=== PATIENT | male | born 1985 | race Caucasian/White ===

== ENCOUNTER 2022-06-15 17:20 | Emergency (ER) | payer OTHER, SELFPAY ==
[2022-06-15 17:39] VITALS: BP 115/70; PULSE 58; RESP 16; TEMP 36.8; O2SAT 100
--- NOTE | 2022-06-15 17:51 | ED_ITS ---
HPI - Abdominal Pain General Chief Complaint: Abdominal Pain Stated Complaint: POSSIBLE HEMORRHOID History of Present Illness HPI narrative: 37 yo M presents to urgent care with complaints of irritation to his anus since this past weekend. PT states he does a lot of heavy lifting and did some Sunday which he believes where he overdid it. Pt denies any specific pain in the area. Denies any bloody stools, abdominal pain, fever, or chills. Pt denies constipation. Pt has attempted chux pads and OTC medicine to the anus without relief. Review of Systems Review of Systems: Pertinent positives and pertinent negatives per HPI. PMFSH Comments At the time of my signature, I reviewed and agree with the nursing past medical, surgical, social, and family history. There is no relevant family history pertinent to the patient complaint. Exam Narrative: GENERAL: This is a well-nourished, well-developed patient, in no apparent distress. HEAD: normocephalic, atraumatic. EYES: Sclera clear/white. Vision is grossly intact. EARS: External ears normal, auditory canals clear and without drainage. Hearing grossly intact. NECK: Neck supple, non-tender without lymphadenopathy, masses or thyromegaly. CARDIOVASCULAR: Regular rate and rhythm without murmurs, gallops, or rubs. RESPIRATORY: No respiratory distress SKIN: warm, intact with no suspicious lesions or rash, good texture and turgor. NEURO: awake, alert, and oriented to person, place and time. There were no obvious focal neurologic abnormalities. ANUS: 1.5 cm external hemorrhoid noted outside anus. Non-strangulated. Flesh colored. Course Course Level of Care: Express Care Visit Vital Signs Vital signs: Vital Signs Temperature 98.2 F 06/15/22 17:39 Pulse Rate 58 L 06/15/22 17:39 Respiratory Rate 16 06/15/22 17:39 Blood Pressure 115/70 06/15/22 17:39 Pulse Oximetry 100 06/15/22 17:39 Oxygen Delivery Room Air 06/15/22 17:39 Temperature 98.2 F 06/15/22 17:39 Pulse Rate 58 L 06/15/22 17:39 Respiratory Rate 16 06/15/22 17:39 Blood Pressure 115/70 06/15/22 17:39 Pulse Oximetry 100 06/15/22 17:39 Oxygen Delivery Room Air 06/15/22 17:39 reviewed MDM - Abdominal Pain MDM Narrative Medical decision making narrative: Avoid sitting on your buttocks as much as possible. Avoid heavy lifting if possible. Follow up with a back end engineer if symptoms persist. Differential Diagnosis Differential diagnosis: Likely other (hemorroid, stragulated hemorroid, prolapsed rectum) Critical Care Time Critical Care Time Critical Care Time: No Discharge Plan Discharge Clinical Impression: Acute hemorrhoid Patient Disposition: Home, Self-Care Condition: Stable Instructions: Hemorrhoids (DC) Additional Instructions: Avoid sitting on your buttocks as much as possible. Avoid heavy lifting if possible. Follow up with a back end engineer if symptoms persist. Prescriptions: New hydrocortisone [Proctozone-HC] 2.5 % cream with perineal applicator 1 applic RECTAL DAILY PRN (Reason: hemorrhoids) Qty: 30 0RF Follow-up/Referrals: PHYSICIAN,ELEVATOR EXAMINER AND ADJUSTER [Primary Care Provider] - Stand Alone Forms: Work/School Release IP
== END 2022-06-15 17:58 | disposition home or self-care (01) ==
PROVIDERS: Emergency Provider Nurse Practitioner Family
DX: K64.4 Residual hemorrhoidal skin tags (principal)
CPT/HCPCS: 99213; G0463

== ENCOUNTER 2022-12-17 13:57 | Emergency (ER) | payer OTHER, SELFPAY ==
[2022-12-17 14:10] VITALS: BP 107/54; PULSE 51; RESP 18; TEMP 36.4; O2SAT 99
--- NOTE | 2022-12-17 14:53 | ED.DENTAL ---
HPI - Dental/Oral General Chief complaint: Dental/Oral Stated complaint: dental pain Time Seen by Provider: 12/17/22 14:47 Source: patient and RN notes reviewed Mode of arrival: ambulatory Limitations: no limitations History of Present Illness HPI Narrative: Patient presents today complaining of right upper dental pain. States his cap fell off approximately 1 week ago. He was seen by his dentist at the [facility] and prescribed 7 days of amoxicillin and ibuprofen. Patient finished his course of amoxicillin yesterday. States he was feeling better on the amoxicillin, but his symptoms returned today. He has an appointment with a dentist in 9 days. Related Data Allergies Allergy/AdvReac Type Severity Reaction Status Date / Time No Known Allergies Allergy Verified 12/17/22 14:58 Review of Systems Review of Systems: CONSTITUTIONAL: Denies body aches, fever, chills, or sweats. EYES: Denies visual changes, redness, or discharge. ENT: Denies rhinorrhea, congestion, sore throat, or otalgia.+ tooth pain CARDIOVASCULAR: Denies chest pain, palpitations, or edema. RESPIRATORY: Denies cough or dyspnea. GASTROINTESTINAL: Denies abdominal pain, nausea, vomiting, or diarrhea. GENITOURINARY: Denies dysuria or hematuria. SKIN: Denies rash, itching, or wounds. MUSCULOSKELETAL: Denies back pain, joint pain, or myalgia. NEUROLOGIC: Denies headache, numbness, tingling, or weakness. PSYCH: Denies depression or anxiety. PMFSH Comments At time of signature, I have reviewed and agree with nursing past medical, surgical, social and family history unless otherwise noted. Please see nursing chart for further information. There is no relevant family history pertinent to the presenting complaint Exam Narrative: GENERAL: Well-appearing, well-nourished, and in no acute distress. HEAD: Normocephalic, atraumatic. EYES: EOMI. No redness or drainage. Conjunctivae normal. ENT: Mucous membranes pink and moist. Tooth 6 is decayed and brown in color. Tenderness to the surrounding gum line. No obvious periapical abscess. No facial swelling noted. NECK: Normal AROM. CHEST: No respiratory distress. EXTREMITIES: Normal range of motion. No edema. SKIN: Warm, dry, no rash. Capillary refill normal. Normal skin turgor. NEURO: No focal deficits. Alert and oriented x3. Gait steady. PSYCH: Normal affect. No signs of depression or anxiety. Course Course Level of Care: Express Care Visit Vital Signs Vital signs: Vital Signs Temperature 97.5 F L 12/17/22 14:10 Pulse Rate 51 L 12/17/22 14:10 Respiratory Rate 18 12/17/22 14:10 Blood Pressure 107/54 L 12/17/22 14:10 Pulse Oximetry 99 12/17/22 14:10 Oxygen Delivery Room Air 12/17/22 14:10 Temperature 97.5 F L 12/17/22 14:10 Pulse Rate 51 L 12/17/22 14:10 Respiratory Rate 18 12/17/22 14:10 Blood Pressure 107/54 L 12/17/22 14:10 Pulse Oximetry 99 12/17/22 14:10 Oxygen Delivery Room Air 12/17/22 14:10 Reviewed MDM - Dental/Oral MDM Narrative Medical decision making narrative: Will extend patient's prescription for amoxicillin by 5 days to ensure the infection has improved. Patient will follow-up with his dentist as scheduled. Patient agrees with plan. Anticipatory guidance given. Differential Diagnosis Differential diagnosis: Likely gingival abscess, dental caries, toothache and dental abscess Critical Care Time Critical Care Time Critical Care Time: No Discharge Plan Discharge Clinical Impression: Dental caries Patient Disposition: Home, Self-Care Condition: Stable Instructions: Antibiotic Form Additional Instructions: Please take the amoxicillin as prescribed until gone. Follow-up with your dentist as scheduled. Prescriptions: New amoxicillin 875 mg tablet 875 mg PO Q12H 5 Days Qty: 10 0RF No Action hydrocortisone [Proctozone-HC] 2.5 % cream with perineal applicator 1 applic RECTAL DAILY PRN ([facility]
== END 2022-12-17 15:06 | disposition home or self-care (01) ==
PROVIDERS: Emergency Provider Nurse Practitioner
DX: K02.9 Dental caries, unspecified (principal)
CPT/HCPCS: 99213; G0463